=== PATIENT | female | born 1995 | race Caucasian/White ===

== ENCOUNTER 2019-01-03 17:08 | Emergency (ER) | payer MEDICAID, OTHER ==
[~2019-01-03] VITALS: Ht 167.6 cm; Wt 77.7 kg
[2019-01-03 17:12] VITALS: PULSE 75; Ht 167.6 cm; Wt 77.7 kg
[2019-01-03] MEDS ORDERED: IBUPROFEN 800 MG TAB PO ONE (18:30)
[2019-01-03] MEDS ORDERED: IBUP-1542 PO (19:01)
--- NOTE | 2019-01-03 19:22 | ERD ---
ER Documentation Chief Complaint Chief Complaint chest pain while sleeping to day HPI Patient is a 23-year-old female with no medical problems who presents with chest pain. She has midsternal chest pain which started today. It comes and goes. She had some shortness of breath as well. She has had no treatment as of yet. Upon review of old medical records this is the patient's first visit to the emergency department. ROS All systems reviewed and are negative except as per history of present illness. Medications Home Meds Active Scripts Ibuprofen* (Motrin*) 600 Mg Tab, 600 MG PO Q6H PRN for PAIN AND OR ELEVATED TEMP, #30 TAB Prov:IVETTE CONNER MD 01/03/19 Allergies Allergies: Coded Allergies: No Known Allergy (Unverified , 01/03/19) PMhx/Soc Medical and Surgical Hx: pt denies Medical Hx FmHx Family History: coronary disease Physical Exam Vitals Vital Signs Date Temp Pulse Resp B/P (MAP) Pulse Ox O2 O2 Flow FiO2 Time Delivery Rate 01/03/19 98.6 75 18 123/58 100 17:12 (79) Physical Exam Const: No acute distress Head: Atraumatic Eyes: Normal Conjunctiva ENT: Normal External Ears, Nose and Mouth. Neck: Full range of motion. No meningismus. Resp: Clear to auscultation bilaterally Cardio: Regular rate and rhythm, no murmurs Abd: Soft, non tender, non distended. Normal bowel sounds Skin: No petechiae or rashes Back: No midline or flank tenderness Ext: No cyanosis, or edema Neur: Awake and alert Psych: Normal Mood and Affect Results 24 hrs Laboratory Tests Test 01/03/19 19:18 POC Beta HCG, Qualitative NEGATIVE Current Medications Medications Dose Sig/Javan Start Time Status Last (Trade) Ordered Route PRN Stop Time Admin Dose Reason Admin Ibuprofen 800 mg ONCE ONCE 01/03/19 DC 01/03/19 (Motrin) PO 18:30 01/03/19 18:38 18:31 Procedures/MDM EKG read by me: Rate/Rhythm: Regular rate and rhythm at a rate of 64 Intervals: Normal Impression: No evidence of ischemia or arrhythmia Chest X-ray 1V Interpreted by me: Soft Tissue: No acute abnormalities Bones: No acute abnormalities Mediastinum/Cardiac Silhouette/Lungs: No acute abnormalities Urine test is negative. Patient is a 23-year-old female with no medical issues who presents with chest pain. EKG and chest x-ray were negative. test was negative. At this point I doubt acute coronary syndrome, pneumonia, pneumothorax, pulmonary embolism, or aortic dissection. The patient was given ibuprofen. She will be discharged with ibuprofen and will need to follow-up with a local clinics within 24-48 hours as she does not currently have a primary doctor. She can return for any worsening symptoms. Departure Diagnosis: Primary Impression: Chest pain Chest pain type: unspecified Qualified Codes: R07.9 - Chest pain, unspecified Condition: Fair Patient Instructions: Chest Pain, Uncertain Cause [facility] Usted se chew hecho un examen mdico de control que le indica que no est en magdalena condicin que requiera tratamiento urgente en el Departamento de Emergencia. Un estudio ms profundo y el tratamiento de parisi condicin pueden esperar sin ningn riesgo hasta que usted sea atendida/o en el consultorio de parisi mdico o magdalena clnica. Es responsabilidad suya arreglar magdalena arvind para el seguimiento del june. MANEJO DE CONDICIONES NO URGENTES EN EL FUTURO 1) Si usted tiene un mdico de atencin primaria: Usted debera llamar a parisi mdico de atencin primaria antes de venir al departamento de emergencia. Despus de las horas de consultorio, parisi doctor o parisi asociado/a est disponible por telfono. El mdico o enfermero de praveena en el servicio telefnico puede asesorarle por lela medio para atender el problema, o june contrario se puede programar magdalena arvind. 2) Si usted no tiene un mdico de atencin primaria: Llame al mdico o clnica de referencia que aparece abajo gia las horas de consultorio para hacer magdalena arvind para que le vean. CLINICAS: [facility] [phone] [facility] [phone] [facility] [phone] [place] [id number] [phone] [place] [id number] [phone] [facility]. [phone] Additional Instructions: Llame al doctor MAANA y tara magdalena ARVIND PARA DENTRO DE 1-2 POST.Dgale a la secretaria que nosotros le instruimos hacer esta arvind.Avise o llame si parisi condicin se empeora antes de la arvind. Regresa aqui si peor o no mejor. IVETTE CONNER MD Jan 03, 2019 19:22
[2019-01-03 19:24] VITALS: BP 123/58; RESP 18
== END 2019-01-03 19:29 | disposition home or self-care (01) ==
LOC: E/R 17:08
DX: R07.2 Precordial pain (principal)
CPT/HCPCS: 71045; 81025; Z7610